=== PATIENT | female | born 1970 | race Caucasian/White ===

== ENCOUNTER 2018-05-25 15:10 | Emergency (ER) | payer MEDICARE, OTHER ==
[2018-05-25] MEDS ORDERED: KETOROLAC TROMETHAMINE 60 MG/2 ML VIAL IM ONE (16:03)
[2018-05-25] MEDS ORDERED: ORPHENADRINE CITRATE 60 MG/2ML IM ONE (16:03)
--- NOTE | 2018-05-25 16:08 | ED Physician Documentation ---
General Adult - HISTORIAN Historian: patient - HPI Stated Complaint: back pain Chief Complaint: General Adult Additional Information: 2-3 days LBP. Points to L1 area, downward. Took tizanidine w/o relief. Talked to Dr. Palomo who called in something that started with a "B." has not picked up this medication, but came to the ER. Says her usual back pain is not this high on her back. Denies unusual tingling (has tingling radha hands as a rule), denies weakness, paralysis. Also has aching, waxing and waning, all over abdominal pain today. Thought she was constipated and took 5 doses of MOM over last two days. Had normal bowel movement this am. Has small amount white discharge. Denies fever, dysuria. - ROS CONST: no problems. denies: fever - PAST HX Past History: COPD, other (chronic back pain) Allergies/Adverse Reactions: Allergies Allergy/AdvReac Type Severity Reaction Status Date / Time No Known Allergies Allergy Unverified 05/25/18 15:40 Home Medications: Ambulatory Orders Medication Instructions Recorded Buprenorphine HCl/Naloxone HCl 8 mg SL TID 05/25/18 [Suboxone 8 mg-2 mg Tablet] Dextroamphetamine/Amphetamine 20 mg PO BID 05/25/18 [Adderall 20 mg Tablet] Gabapentin [Neurontin] 05/25/18 Hydrochlorothiazide [Hydrodiuril] 25 mg PO DAILY 05/25/18 Tizanidine HCl [Zanaflex] 05/25/18 - SOCIAL HX Smoking History: cigarettes - FAMILY HX Family History: No - VITAL SIGNS Vital Signs: Vital Signs Temp Pulse Resp BP Pulse Ox 98.0 F 94 H 16 175/98 98 05/25/18 15:30 05/25/18 15:30 05/25/18 15:30 05/25/18 15:30 05/25/18 15:30 - REVIEWED ASSESSMENTS Nursing Assessment Reviewed: Yes Vitals Reviewed: Yes ED Results Lab/Radiology - Orders Orders: ED Orders Category Date Time Status Ketorolac Tromethamine [Toradol] Med 05/25/18 16:03 Once 60 mg IM NOW ONE Orphenadrine Citrate [Norflex] Med 05/25/18 16:03 Once 60 mg IM NOW ONE General Adult Physical Exam - PHYSICAL EXAM GENERAL APPEARANCE: mild distress EENT: eye inspection normal, ENT inspection normal NECK: normal inspection, supple RESPIRATORY: no resp distress, breath sounds normal CVS: reg rate & rhythm, heart sounds normal ABDOMEN: soft, normal bowel sounds, tenderness (diffuse) BACK: normal inspection, no CVA tenderness, other (no vertebral tenderness. Startles with light touch to lumbar paraspinous muscle areas) SKIN: warm/dry, normal color EXTREMITIES: normal range of motion, no evidence of injury NEURO: CN's nml as tested, motor nml, sensation nml, cognition normal, other (reflexes 2+ throughout. SLR neg radha to 90 degrees. Can dorsiflex 1st toes against resistance) Discharge Clincal Impression: Back pain Qualifiers: Back pain location: low back pain Chronicity: unspecified Back pain laterality: bilateral Sciatica presence: without sciatica Qualified Code(s): M54.5 - Low back pain Referrals: Silviano Mccurdy MD [Primary Care Provider] - 2 Days Condition: Good Disposition: 01 HOME, SELF-CARE Decision to Admit: NO Decision Time: 16:30
[2018-05-25 16:33] VITALS: BP 164/84
== END 2018-05-25 16:31 | disposition home or self-care (01) ==
LOC: ED 15:10
DX: M54.5 Low back pain (principal)
CPT/HCPCS: J1885; J2360; 96372; 99283